=== PATIENT | male | born 1975 | race Caucasian/White ===

== ENCOUNTER 2020-11-25 10:16 | Outpatient (REF) | payer OTHER, SELFPAY | END 2020-11-25 10:17 | disposition home or self-care (01) | LOC: HO.LAB 10:16 | PROVIDERS: Visit Provider Internal Medicine | DX: Z20.822 Contact with and (suspected) exposure to COVID-19 (principal) | CPT/HCPCS: 36415; C9803; U0003 ==

== ENCOUNTER 2020-11-25 10:26 | Emergency (ER) | payer OTHER, SELFPAY ==
[2020-11-25 11:56] VITALS: PULSE 70; RESP 16; TEMP 36.8; O2SAT 98; BMI 39.3
--- NOTE | 2020-11-25 12:34 | XR_ITS ---
EXAMINATION: XR CHEST CLINICAL INFORMATION: Chest pain COMPARISON: Previous chest x-ray April 2019 TECHNIQUE: Frontal view of the chest was obtained. FINDINGS: The cardiac and mediastinal contours are normal. The lungs are clear. There is no pleural effusion or pneumothorax. No acute bone abnormality is seen. XR/XR chest 1V IMPRESSION: No evidence for acute disease in the chest.
[2020-11-25 12:43] LABS: COVID-19 Test Negative (Negative); IDNOW Serial# 9DD0AD1C
[2020-11-25] MEDS: Lidocaine HCl Viscous 2 % 15 ML SOLUTION MUCOUS MEM (12:46)
[2020-11-25] MEDS: Magnesium Hydrox/Alum Hydrox 30 ML ORAL.SUSP PO (12:47)
[2020-11-25] MEDS: Acetaminophen 325 MG TABLET 650 MG PO (12:47)
[2020-11-25] MEDS: Famotidine 20 MG TABLET PO (12:47)
--- NOTE | 2020-11-25 13:37 | ED_ITS ---
HPI - General Adult General Chief complaint: General Medical Stated complaint: flu symptoms Time Seen by Provider: 11/25/20 12:10 Source: patient Mode of arrival: ambulatory History of Present Illness HPI narrative: 45-year-old male with no significant past medical history presenting to the ED complaining of headache, nausea, nonbloody emesis and diarrhea, abdominal discomfort, myalgias, generalized fatigue x3 days. Also reports chest discomfort. Denies cough, SOB, fever, recent travel, LE edema, history of blood clots, sick contacts/known exposure COVID-19 Onset (ago): day(s) Related Data Allergies Allergy/AdvReac Type Severity Reaction Status Date / Time No Known Allergies Allergy Unverified 07/31/20 19:41 [No Known Allergies*] Review of Systems Review of Systems: Constitutional: No Weight loss, No Fever, + Chills, No Night Sweats, +fatigue, + Malaise ENT/Mouth: No Hearing loss, No Ear Pain, No Nasal Congestion, No Sinus Pain, No sore throat, No Rhinorrhea Cardiovascular: + Chest Pain, No SOB, No Edema Respiratory: No Cough, No Sputum, No Wheezing Gastrointestinal: + Nausea, + Vomiting, + Diarrhea, No Constipation, + Abdominal pain Genitourinary: No Dysuria, No Urinary Frequency, No Hematuria Musculoskeletal: No joint pain, + Myalgias, No Joint Swelling Skin: No Skin Lesions, No rash Neuro: +generalized Weakness, No Dizziness, + Headache Yes all other systems are reviewed and are negative PMFSH Past Medical History Attestation statement: The following information was validated with the patient. Social History Social History Advance Directives: No Advance Directives Information Provided: No Physical Exam Vital Signs: Vital Signs: Last Vital Signs Temp 98.5 F 11/25/20 13:45 Pulse 77 11/25/20 13:45 Resp 16 11/25/20 13:45 BP 136/78 11/25/20 13:45 Pulse Ox 99 11/25/20 13:45 Body Mass Index 39.3 Const: General: cooperative, healthy appearing, comfortable and no acute distress Orientation/consciousness: patient oriented x3 Limitations: no limitations HENMT: Head: Yes normal to inspection Ears: hearing grossly normal bilaterally General nose exam: Normal external nose present Face and sinus: Yes normal facial exam Eyes: General: appearance normal, both eyes and all related structures EOM: EOMs intact bilaterally Neck: Neck: Yes normal visual inspection and Yes no lymphadenopathy Resp: Effort & Inspection: normal respiratory effort Auscultation: clear to auscultation bilaterally, no rales, no rhonchi and no wheezes Cardio: Rate: regular rate Heart sounds: S1 normal heart sound present and S2 normal heart sound present GI: Inspection: Yes normal to inspection Palpation (GI): Soft to palpation, Tenderness to palpation present (GI) in the epigastrum, no guarding and not rigid Skin: Rashes: no rashes Wounds: no wounds Neuro: General: patient oriented x3, gait normal, tone normal and moves all extremities Gait exam (Neuro): Normal gait present Extrem: Other: No LE edema or calf tenderness General: Yes normal to inspection Course Course Course Narrative: * CXR unremarkable, COVID-19 negative 1500- patient eloped the ED prior to blood work Medical Decision Making MDM Narrative Medical decision making narrative: 45-year-old male with no significant past medical history presenting to the ED complaining of headache, nausea, nonbloody emesis and diarrhea, abdominal discomfort, myalgias, generalized fatigue x3 days. On exam VSS, NAD/well-appearing, nontoxic, lungs CTA, abdomen soft with epigastric TTP, no rebound or guarding. Concern for viral syndrome/COVID-19 vs gastroenteritis/GERD. Rule out ACS. Low concern for PE/bacterial pneumonia Plan: EKG, labs, UA, CXR, COVID-19 testing, symptomatic therapiesreassess Lab Data Labs: Lab Results 11/25/20 Range/Units 12:16 COVID-19 ([facility]US[facility]) Negative (Negative) COVID-19 Clin Com See Note Discharge Plan Discharge Clinical Impression: Acute viral syndrome Patient Disposition: Elopement Instructions: Viral Syndrome (ED) Referrals: Physician,None [Primary Care Provider] - 2 days
[2020-11-25 13:45] VITALS: BP 136/78; PULSE 77; RESP 16; TEMP 36.9; O2SAT 99
== END 2020-11-25 15:00 | disposition left against medical advice (07) ==
PROVIDERS: Physician Assistant; Emergency Provider Emergency Medicine Emergency Medical Services
DX: B34.9 Viral infection, unspecified (principal); R51.9 Headache, unspecified; M79.10 Myalgia, unspecified site; Z20.828 Contact with and (suspected) exposure to other viral communicable diseases
CPT/HCPCS: 36415; 71045; 87635; 99283